=== PATIENT | male | born 1990 | race Hispanic/Latino ===

== ENCOUNTER 2022-11-02 17:06 | Emergency (ER) | payer BC ==
[~2022-11-02] VITALS: Ht 172.7 cm; Wt 95.3 kg
[2022-11-02 17:10] VITALS: BP 142/89
[2022-11-02] MEDS ORDERED: IBUPROFEN 600 MG TABLET PO ONE (19:30)
[2022-11-02] MEDS ORDERED: NAPR500T6 PO (22:08)
== END 2022-11-02 22:16 | disposition home or self-care (01) ==
LOC: EDH 17:06
DX: M25.531 Pain in right wrist (principal); M79.631 Pain in right forearm; W18.39XA Other fall on same level, initial encounter; Y93.89 Activity, other specified; Y92.89 Other specified places as the place of occurrence of the external cause; Y99.8 Other external cause status
CPT/HCPCS: 29125; 73090; 73100; 73130